=== PATIENT | male | born 1990 ===

== ENCOUNTER 2022-09-08 14:50 | Emergency (ER) | payer SELFPAY ==
[~2022-09-08] VITALS: Ht 175.3 cm; Wt 73.2 kg
[2022-09-08 14:50] VITALS: BP 125/81
== END 2022-09-08 17:19 | disposition left against medical advice (07) ==
LOC: M ED 14:50
DX: Z53.21 Procedure and treatment not carried out due to patient leaving prior to being seen by health care provider (principal)

== ENCOUNTER → 2023-02-20 | Outpatient (REF) | payer OTHER ==
[2023-02-20 14:34] LABS: SEMEN APPEARANCE OPAQUE (OPAQUE); SEMEN VOLUME 0.8 ml (2.0-5.0)
[2023-02-20 14:35] LABS: SEMEN VISCOSITY LIQUID (LIQUID)
[2023-02-20 14:36] LABS: WBC CONCENTRATION <=1 M/ml (<=1 M/ml)
== END ==
LOC: M LAB REF 13:14
PROVIDERS: ATTEND Preventive Medicine Undersea and Hyperbaric Medicine
DX: Z30.2 Encounter for sterilization (principal)